=== PATIENT | female | born 1990 | race Caucasian/White ===

== ENCOUNTER → 2016-12-13 | Outpatient (CLI) | payer OTHER ==
--- NOTE | 2016-12-13 11:32 | DIAGNOSTIC IMAGING REPORT ---
RIGHT FIRST TOE 3 VIEWS CLINICAL HISTORY: First toe pain. FINDINGS: 3 views of the right first toe are obtained. No prior studies are available for comparison at the time of dictation. The skeletal structures are well mineralized. There is a minimally distracted and age indeterminant avulsion fracture from the medial base of the first proximal phalanx. Overlying soft tissue edema is noted. No additional fracture is seen. The first metatarsophalangeal and interphalangeal joints are in anatomic alignment. IMPRESSION: Minimally distracted avulsion fracture through the medial base of the first proximal phalanx as above. Electronically signed by: Flo Vernon M.D. 12/13/2016 11:31 AM Dictated Date/Time: 12/13/2016 11:29 AM
== END | disposition home or self-care (01) ==
LOC: C.RDSM 10:33
PROVIDERS: ATTEND Internal Medicine
DX: M79.674 Pain in right toe(s) (principal)

== ENCOUNTER → 2016-12-28 | Outpatient (CLI) | payer OTHER ==
--- NOTE | 2016-12-28 14:01 | DIAGNOSTIC IMAGING REPORT ---
RIGHT TOE(S) MIN 2 VIEWS CLINICAL HISTORY: 26 years-old Female presenting with RIGHT 1ST TOE PAIN Right. TECHNIQUE: Frontal, oblique, and lateral views of the right first toe were obtained. COMPARISON: 12/13/2016. FINDINGS: Previously demonstrated minimally displaced oblique intra-articular fracture of the medial base of the proximal phalanx of the first toe remains evident. No significant bridging callus formation is appreciated. Fracture margins appear relatively smooth, suggesting nonunion. No malalignment at the first metatarsophalangeal joint. Regional soft tissues normal. IMPRESSION: No significant interval healing at the oblique intra-articular fracture of the medial base of the proximal phalanx of the first toe. No malalignment. Electronically signed by: Saman Maria M.D. 12/28/2016 1:59 PM Dictated Date/Time: 12/28/2016 1:58 PM
== END | disposition home or self-care (01) ==
LOC: C.RDSM 14:46
PROVIDERS: ATTEND Internal Medicine
DX: S92.411A Displaced fracture of proximal phalanx of right great toe, initial encounter for closed fracture (principal); X58.XXXA Exposure to other specified factors, initial encounter

== ENCOUNTER → 2017-01-23 | Outpatient (CLI) | payer OTHER ==
--- NOTE | 2017-01-23 16:19 | DIAGNOSTIC IMAGING REPORT ---
RIGHT GREAT TOE 3 VIEWS CLINICAL HISTORY: RIGHT 1ST TOE PAIN COMPARISON: 12/28/2016 DISCUSSION: Again evident is an intra-articular fracture involving the medial base of the proximal phalanx of the great toe. No definite callus formation is visualized. IMPRESSION: No change in the mildly distracted intra-articular fracture involving the medial base of proximal phalanx the great toe. No definite callus formation is visualized. Electronically signed by: Bhavesh Peralta M.D. 01/23/2017 4:18 PM Dictated Date/Time: 01/23/2017 4:17 PM
== END | disposition home or self-care (01) ==
LOC: C.RDSM 13:16
PROVIDERS: ATTEND Internal Medicine
DX: S92.411A Displaced fracture of proximal phalanx of right great toe, initial encounter for closed fracture (principal); X58.XXXA Exposure to other specified factors, initial encounter